=== PATIENT | female | born 1985 | race Caucasian/White ===

== ENCOUNTER 2017-03-13 07:26 | Emergency (ER) | payer OTHER ==
[~2017-03-13] VITALS: Ht 165.1 cm; Wt 87.0 kg
[2017-03-13 07:30] VITALS: BP 138/91
[2017-03-13] MEDS ORDERED: DIPH,PERTUSS(ACELL),TET VAC/PF 0.5 ML IM-VACC ONE ×2 (07:57→08:00)
[2017-03-13] MEDS ORDERED: LIDOCAINE 1%, 10ML SQ ONE (08:00)
== END 2017-03-13 09:12 | disposition home or self-care (01) ==
LOC: ED 08:17
DX: S71.151A Open bite, right thigh, initial encounter (principal); W54.0XXA Bitten by dog, initial encounter; Y93.89 Activity, other specified; Y99.8 Other external cause status; Y92.89 Other specified places as the place of occurrence of the external cause
CPT/HCPCS: 73552; 90471; 90715; 99284; J3490